=== PATIENT | female | born 1935 | race Hispanic/Latino ===

== ENCOUNTER 2017-08-25 16:48 | Emergency (ER) | payer MEDICARE ==
[2017-08-25 16:59] VITALS: BP 166/78; PULSE 80; RESP 18; TEMP 97.8; O2SAT 99
[2017-08-25] MEDS ORDERED: Tdap Vaccine 0.5 ml Vial (10-64 yrs) IM ONE (17:19)
--- NOTE | 2017-08-25 17:25 | ED PDOC ---
HPI: Wound Care - HPI Time Seen by Provider: 08/25/17 17:19 Chief Complaint (Nursing): Abnormal Skin Integrity Chief Complaint (Provider): Left Arm Laceration History Per: Patient History Of Present Illness: 82 year old female presents to the emergency department with a laceration to her left arm. Patient states that yesterday in the house she was hit by a door causing injury. She reports that her daughter applied a butterfly stitch which did not help with the bleeding. PMD: Noel Scott Exam Limitations: no limitations Onset/Duration Of Symptoms: Days Current Symptoms Are (Timing): Still Present Location Of Injury: Left: Arm Severity: None Past Medical History Reviewed: Historical Data, Nursing Documentation, Vital Signs Vital Signs: Last Vital Signs Temp 97.8 F 08/25/17 16:55 Pulse 80 08/25/17 16:55 Resp 18 08/25/17 16:55 BP 166/78 H 08/25/17 16:55 Pulse Ox 99 08/25/17 16:55 - Medical History PMH: HTN, Hypercholesterolemia, Hypothyroidism - Surgical History Surgical History: No Surg Hx - Family History Family History: States: Unknown Family Hx - Living Arrangements Living Arrangements: With Family - Social History Current smoker - smoking cessation education provided: No Ex-Smoker (has not smoked in the last 12 months): No Alcohol: None Drugs: Denies - Home Medications Home Medications: Ambulatory Orders Medication Instructions Recorded Levothyroxine Sodium 25 mcg PO DAILY 11/26/13 [Levothyroxine Sodium] Metoprolol Tartrate [Metoprolol 50 mg PO DAILY 11/26/13 Tartrate] Simvastatin [Simvastatin] 20 mg PO DAILY 11/26/13 - Allergies Allergies/Adverse Reactions: Allergies Allergy/AdvReac Type Severity Reaction Status Date / Time No Known Allergies Allergy Verified 11/26/13 11:11 Review of Systems ROS Statement: Except As Marked, All Systems Reviewed And Found Negative Musculoskeletal: Positive for: Other (laceraton to left arm) Physical Exam - Reviewed Nursing Documentation Reviewed: Yes - Physical Exam Appears: Positive for: Non-toxic, No Acute Distress Head Exam: Positive for: ATRAUMATIC, NORMAL INSPECTION, NORMOCEPHALIC Skin: Positive for: Normal Color, Warm, Dry. Negative for: Rash Eye Exam: Positive for: Normal appearance, EOMI, PERRL Cardiovascular/Chest: Positive for: Regular Rate, Rhythm, Chest Non Tender. Negative for: Tachycardia Respiratory: Negative for: Rales, Rhonchi, Wheezing, Respiratory Distress Extremity: Positive for: Other (1 cm superficial skin tear noted to left arm with active bleeding). Negative for: Tenderness, Deformity, Swelling Neurologic/Psych: Positive for: Alert, Oriented - ECG O2 Sat by Pulse Oximetry: 99 (RA) Pulse Ox Interpretation: Normal Medical Decision Making Medical Decision Makin Initial Impression 82 year old female presenting with injury to left arm Initial plan: * Adael 10--64 years 0.5mL * Reevaluation Wound cleansed with sterile water. 1 steri strip was placed and pressure dressing applied. Patient observed in ED with no active bleeding. Documented by Holly Cohen acting as a scribe for Millie Harrison PA-C. All medical record entries made by the Scribe were at my direction and personally dictated by me. I have reviewed the chart and agree that the record accurately reflects my personal performance of the history, physical exam, medical decision making, and the department course for this patient. I have also personally directed, reviewed, and agree with the discharge instructions and disposition. Disposition - Clinical Impression Clinical Impression: Skin tear - Patient ED Disposition Is Patient to be Admitted: No Counseled Patient/Family Regarding: Studies Performed - Disposition Disposition: Routine/Home Disposition Time: 17:30 Condition: FAIR Additional Instructions: f/u with pmd/urgent care or ED in 2 days for wound check Instructions: Wound Care (DC) - POA Present On Arrival: None
== END 2017-08-25 18:09 | disposition home or self-care (01) ==
LOC: H.ER 16:48
DX: S41.112A Laceration without foreign body of left upper arm, initial encounter (principal); W22.8XXA Striking against or struck by other objects, initial encounter; Z23 Encounter for immunization; I10 Essential (primary) hypertension; Z87.891 Personal history of nicotine dependence; E78.00 Pure hypercholesterolemia, unspecified; E03.9 Hypothyroidism, unspecified

== ENCOUNTER 2017-08-28 07:49 | Emergency (ER) | payer MEDICARE ==
[2017-08-28 07:53] VITALS: BP 151/71; PULSE 72; RESP 19; TEMP 97.6; O2SAT 98
--- NOTE | 2017-08-28 08:15 | ED PDOC ---
HPI: Wound Care - HPI Time Seen by Provider: 08/28/17 08:05 Chief Complaint (Nursing): Wound Check Chief Complaint (Provider): wound check History Per: Patient Exam Limitations: no limitations Current Symptoms Are (Timing): Better Location Of Injury: Left: Forearm Severity: Mild Additional History Per: Prior Records Additional Complaint(s): 82yo female states injured left forearm on storm door on saturday, came to ED saturday and had steristrip placed. No pain, swelling or bleeding from site. Has kept it dry. Received tetanus booster also, states arm is sore but no fever, weakness or falls. Past Medical History Reviewed: Historical Data, Nursing Documentation, Vital Signs Vital Signs: Last Vital Signs Temp 97.6 F 08/28/17 07:52 Pulse 72 08/28/17 07:52 Resp 19 08/28/17 07:52 BP 151/71 H 08/28/17 07:52 Pulse Ox 98 08/28/17 07:52 - Medical History PMH: HTN, Hypercholesterolemia, Hypothyroidism - Family History Family History: States: Unknown Family Hx - Home Medications Home Medications: Ambulatory Orders Medication Instructions Recorded Levothyroxine Sodium 25 mcg PO DAILY 11/26/13 [Levothyroxine Sodium] Metoprolol Tartrate [Metoprolol 50 mg PO DAILY 11/26/13 Tartrate] Simvastatin [Simvastatin] 20 mg PO DAILY 11/26/13 - Allergies Allergies/Adverse Reactions: Allergies Allergy/AdvReac Type Severity Reaction Status Date / Time No Known Allergies Allergy Verified 08/28/17 08:13 Review of Systems ROS Statement: Except As Marked, All Systems Reviewed And Found Negative Constitutional: Negative for: Fever Musculoskeletal: Negative for: Arm Pain, Back Pain, Hand Pain, Leg Pain Skin: Negative for: Rash, Lesions, Jaundice Physical Exam - Reviewed Nursing Documentation Reviewed: Yes Vital Signs Reviewed: Yes - Physical Exam Appears: Positive for: Non-toxic Head Exam: Positive for: ATRAUMATIC Skin: Positive for: Normal Color, Warm, Dry Respiratory: Negative for: Respiratory Distress Extremity: Positive for: Normal ROM, Other (L forearm bandage removed, wound steristrip intact minimal bleeding no erythema no induration no discharge). Negative for: Tenderness, Swelling - ECG O2 Sat by Pulse Oximetry: 98 Medical Decision Making Medical Decision Making: wound improving would keep dry additional 48hrs States not on blood thinners wound care reiterated and small bacitracin applied around wound site steristrip maintained Disposition - Clinical Impression Clinical Impression: Encounter for post-traumatic wound check - Patient ED Disposition Is Patient to be Admitted: No Counseled Patient/Family Regarding: Diagnosis, Need For Followup - Disposition Referrals: Noel Teran MD [Staff Provider] - Disposition: Routine/Home Disposition Time: 08:18 Condition: STABLE Additional Instructions: Followup with your doctor as directed. Keep wound dry for additional 48 hours. Instructions: Wound Care (DC) Forms: [employer] (Turkish)
== END 2017-08-28 08:38 | disposition home or self-care (01) ==
LOC: H.ER 07:49
DX: Z48.00 Encounter for change or removal of nonsurgical wound dressing (principal); E03.9 Hypothyroidism, unspecified; E78.00 Pure hypercholesterolemia, unspecified; I10 Essential (primary) hypertension

== ENCOUNTER 2018-03-08 22:14 | Emergency (ER) | payer MEDICARE ==
[2018-03-08 22:27] VITALS: RESP 18
[2018-03-08] MEDS ORDERED: Lidocaine 1% Inj (20ml) INFIL STA (22:33)
--- NOTE | 2018-03-08 22:43 | ED PDOC ---
HPI: General Adult Time Seen by Provider: 03/08/18 22:41 Chief Complaint (Nursing): Abnormal Skin Integrity Chief Complaint (Provider): FINGER LACERATION History Per: Patient (83 Y/O FEMALE HERE WITH LEFT HAND INJURY THAT OCCURRED TODAY WHEN SHE WAS TRYING TO OPEN [employer]IRSPR[employer] CAN. WAS NOTED TO HAVE LACERATION BY LEFT INDEX FINGER. TETANUS UP TO DATE TODAY.) Past Medical History Reviewed: Historical Data, Nursing Documentation, Vital Signs Vital Signs: Last Vital Signs Temp 98.4 F 03/08/18 22:24 Pulse 80 03/08/18 22:24 Resp 18 03/08/18 22:24 BP 182/93 H 03/08/18 22:24 Pulse Ox 100 03/08/18 22:24 - Medical History PMH: HTN, Hypercholesterolemia, Hypothyroidism - Family History Family History: States: Unknown Family Hx - Home Medications Home Medications: Ambulatory Orders Medication Instructions Recorded Levothyroxine Sodium 25 mcg PO DAILY 11/26/13 Metoprolol Tartrate 50 mg PO DAILY 11/26/13 Simvastatin 20 mg PO DAILY 11/26/13 - Allergies Allergies/Adverse Reactions: Allergies Allergy/AdvReac Type Severity Reaction Status Date / Time No Known Allergies Allergy Verified 03/08/18 22:24 Review of Systems ROS Statement: Except As Marked, All Systems Reviewed And Found Negative Physical Exam - Reviewed Nursing Documentation Reviewed: Yes Vital Signs Reviewed: Yes - Physical Exam Appears: Positive for: Well, Non-toxic, No Acute Distress Head Exam: Positive for: ATRAUMATIC, NORMAL INSPECTION, NORMOCEPHALIC Skin: Positive for: Normal Color, Warm, DRY Eye Exam: Positive for: EOMI, Normal appearance, PERRL ENT: Positive for: Normal ENT Inspection Neck: Positive for: Normal, Painless ROM Cardiovascular/Chest: Positive for: Regular Rate, Rhythm Respiratory: Positive for: CNT, Normal Breath Sounds Gastrointestinal/Abdominal: Positive for: Normal Exam, Soft Back: Positive for: Normal Inspection Extremity: Positive for: Normal ROM, Other (1.25 CM LINEAR LACERATION DORSAL SURFACE OF MIDDLE PHALANX. ABLE TO FLEX AND EXTEND WITHOUT DIFFICULTY.) Neurologic/Psych: Positive for: Alert, Oriented - ECG O2 Sat by Pulse Oximetry: 100 - Progress ED Course And Treament: finger splint placed Disposition - Clinical Impression Clinical Impression: Finger laceration - Patient ED Disposition Is Patient to be Admitted: No - Disposition Disposition: Routine/Home Disposition Time: 23:02 Condition: FAIR Additional Instructions: RETURN IN 7-10 DAYS FOR REMOVAL OF SUTURES. Instructions: Laceration Repair With Stitches (DC) Procedure: Wound Repair - Time Performed Time Performed: 22:43 - Time Out Time Out: Site verified - Consent Obtained Consent obtained: Verbal - Performed by Performed by: Mid-level Provider - Indications Indication(s):: Laceration - Location Location:: Left, Hand Finger:: Index Shape:: Linear Dimensions Length cm: 1.25CM Depth:: Epidermis - Anesthetic Technique Anesthetic Technique: Regional block Local/Regional Anesthetic:: Lidocaine 1% - Irrigated Irrigated with ml of normal saline: 150ML STERILE WATER - Complexity Complexity:: Simple (one layer) - Wound repair method Sutures:: # (THREE ), Size (5-0 ), Type (NYLON), Technique (INTERRUPTED) - Muscle repiar layer closed with Muscle repair layer closed with:: Abx ointment applied - Patient tolerated procedure Patient Tolerated Procedure:: Well
[2018-03-08 23:27] VITALS: BP 143/82; PULSE 84; TEMP 98.3; O2SAT 98
== END 2018-03-08 23:15 | disposition home or self-care (01) ==
LOC: H.ER 22:14
DX: S61.211A Laceration without foreign body of left index finger without damage to nail, initial encounter (principal); W26.8XXA Contact with other sharp object(s), not elsewhere classified, initial encounter; Y92.89 Other specified places as the place of occurrence of the external cause; E03.9 Hypothyroidism, unspecified; E78.00 Pure hypercholesterolemia, unspecified; I10 Essential (primary) hypertension

== ENCOUNTER 2018-03-16 08:21 | Emergency (ER) | payer MEDICARE ==
[2018-03-16 08:27] VITALS: BMI 20.5
[2018-03-16 08:30] VITALS: BP 158/72; PULSE 69; RESP 20; TEMP 98; O2SAT 99
--- NOTE | 2018-03-16 08:49 | ED PDOC ---
HPI: Wound Care - HPI Time Seen by Provider: 03/16/18 08:30 Chief Complaint (Nursing): Wound Check Chief Complaint (Provider): Wound Check History Per: Patient Exam Limitations: no limitations Onset/Duration Of Symptoms: Days (x6) Current Symptoms Are (Timing): Still Present Additional Complaint(s): 83 y/o female presents to the ED for evaluation of a wound check s/p laceration repair to the left index finger 6 days ago. PMD: Noel Teran Past Medical History Reviewed: Historical Data, Nursing Documentation, Vital Signs Vital Signs: Last Vital Signs Temp 98 F 03/16/18 08:28 Pulse 69 03/16/18 08:28 Resp 20 03/16/18 08:28 BP 158/72 H 03/16/18 08:28 Pulse Ox 99 03/16/18 08:28 - Medical History PMH: Arthritis (neck), HTN, Hypercholesterolemia, Hypothyroidism - Surgical History Surgical History: No Surg Hx - Family History Family History: States: Unknown Family Hx - Home Medications Home Medications: Ambulatory Orders Medication Instructions Recorded Levothyroxine Sodium 25 mcg PO DAILY 11/26/13 Metoprolol Tartrate 50 mg PO DAILY 11/26/13 Simvastatin 20 mg PO DAILY 11/26/13 - Allergies Allergies/Adverse Reactions: Allergies Allergy/AdvReac Type Severity Reaction Status Date / Time No Known Allergies Allergy Verified 03/08/18 22:24 Review of Systems ROS Statement: Except As Marked, All Systems Reviewed And Found Negative Skin: Positive for: Other (WOUND CHECK) Physical Exam - Reviewed Nursing Documentation Reviewed: Yes Vital Signs Reviewed: Yes - Physical Exam Appears: Positive for: No Acute Distress Extremity: Positive for: Other (Left index finger wound is clean, dry and intact with no erythema or drainage.) - ECG O2 Sat by Pulse Oximetry: 99 (RA) Pulse Ox Interpretation: Normal Medical Decision Making Medical Decision Making: Time: 08 -- Will wait two more days for area flexion. Will remove sutures in 2 days. Scribe Attestation: Documented by Eugenio Yang, acting as a scribe for Kirk Clark MD. Provider Scribe Attestation: All medical record entries made by the Scribe were at my direction and personally dictated by me. I have reviewed the chart and agree that the record accurately reflects my personal performance of the history, physical exam, medical decision making, and the department course for this patient. I have also personally directed, reviewed, and agree with the discharge instructions and disposition. Disposition - Clinical Impression Clinical Impression: Encounter for wound re-check - Patient ED Disposition Is Patient to be Admitted: No - Disposition Disposition: Routine/Home Disposition Time: 09:00 Condition: FAIR Additional Instructions: Return in 2 days for suture removal Forms: [employer] (Kyrgyz)
== END 2018-03-16 09:13 | disposition home or self-care (01) ==
LOC: H.ER 08:21
DX: Z48.00 Encounter for change or removal of nonsurgical wound dressing (principal)

== ENCOUNTER 2018-03-19 07:25 | Emergency (ER) | payer MEDICARE ==
[2018-03-19 07:28] VITALS: BMI 21.0
[2018-03-19 07:30] VITALS: BP 176/84; PULSE 78; RESP 20; TEMP 98; O2SAT 99
--- NOTE | 2018-03-19 07:53 | ED PDOC ---
HPI: Wound Care - HPI Time Seen by Provider: 03/19/18 07:36 Chief Complaint (Nursing): Suture/Staple Removal Chief Complaint (Provider): Suture/Staple Removal History Per: Patient Exam Limitations: no limitations Location Of Injury: Left: Hand (Index finger) Additional Complaint(s): 83 y/o female presents to ER for suture removal after patient suffered laceration to her left index finger on Mar 08. Patient was here on Mar 16 for wound check. She reports tetanus is UTD. Wound is healing well and patient denies any pain, discharge or fever. PMD: Noel Teran Past Medical History Reviewed: Historical Data, Nursing Documentation, Vital Signs Vital Signs: Last Vital Signs Temp 98 F 03/19/18 07:29 Pulse 78 03/19/18 07:29 Resp 20 03/19/18 07:29 BP 176/84 H 03/19/18 07:29 Pulse Ox 99 03/19/18 07:29 - Medical History PMH: Arthritis (neck), HTN, Hypercholesterolemia, Hypothyroidism - Surgical History Surgical History: No Surg Hx - Family History Family History: States: Unknown Family Hx - Social History Current smoker - smoking cessation education provided: No Alcohol: None Drugs: Denies - Home Medications Home Medications: Ambulatory Orders Medication Instructions Recorded Levothyroxine Sodium 25 mcg PO DAILY 11/26/13 Metoprolol Tartrate 50 mg PO DAILY 11/26/13 Simvastatin 20 mg PO DAILY 11/26/13 - Allergies Allergies/Adverse Reactions: Allergies Allergy/AdvReac Type Severity Reaction Status Date / Time No Known Allergies Allergy Verified 03/19/18 07:42 Review of Systems ROS Statement: Except As Marked, All Systems Reviewed And Found Negative Constitutional: Negative for: Fever Musculoskeletal: Negative for: Hand Pain (left) Physical Exam - Reviewed Nursing Documentation Reviewed: Yes Vital Signs Reviewed: Yes - Physical Exam Appears: Positive for: Non-toxic, No Acute Distress Head Exam: Positive for: ATRAUMATIC, NORMOCEPHALIC Extremity: Positive for: Normal ROM, Other (Wound of left index finger is intact. No dehiscence, erythema or discharge) Neurologic/Psych: Positive for: Alert, Oriented (x3) - ECG O2 Sat by Pulse Oximetry: 99 (RA) Pulse Ox Interpretation: Normal Medical Decision Making Medical Decision Makin 3 sutures were removed and wound is clean. Patient is medically stable for discharge. Scribe Attestation: Documented by Milagros Gao, acting as a scribe for Landon Sanchez MD. Provider Scribe Attestation: All medical record entries made by the Scribe were at my direction and personally dictated by me. I have reviewed the chart and agree that the record accurately reflects my personal performance of the history, physical exam, medical decision making, and the department course for this patient. I have also personally directed, reviewed, and agree with the discharge instructions and disposition. Disposition - Clinical Impression Clinical Impression: Removal of suture - Patient ED Disposition Is Patient to be Admitted: No - Disposition Referrals: Noel Teran MD [Staff Provider] - Disposition: Routine/Home Disposition Time: 08:10 Condition: STABLE Instructions: Stitches Removal Forms: [employer] (Korean)
== END 2018-03-19 08:06 | disposition home or self-care (01) ==
LOC: H.ER 07:25
DX: Z48.02 Encounter for removal of sutures (principal); E03.9 Hypothyroidism, unspecified; E78.00 Pure hypercholesterolemia, unspecified; I10 Essential (primary) hypertension